=== PATIENT | male | born 1960 | race Caucasian/White ===

== ENCOUNTER 2020-12-21 20:16 | Emergency (ER) | payer OTHER ==
[~2020-12-21 20:16] MED LIST: Amiodarone 150 MG/3 ML VIAL ONE; Calcium Chloride 1 GM/10 ML Abboject SYRINGE ONE; EPINEPHrine 1 MG/10 ML Abboject SYRINGE ONE; Sodium Bicarb 50 MEQ/50 ML Abboject 8.4% SYRINGE ONE
[2020-12-21] MEDS ORDERED: Magnesium 2 GM/50 ML BAG (IN WATER) ONE (20:21)
[2020-12-22 02:44] LABS: SARS-CoV-2 NAA Rapid Test Not Detected (NotDetected)
== END 2020-12-21 20:36 | disposition expired ==
LOC: ERS 20:16 → EDBD 20:16 → ERS 20:36
DX: I46.9 Cardiac arrest, cause unspecified (principal); I49.01 Ventricular fibrillation; Z20.822 Contact with and (suspected) exposure to COVID-19
CPT/HCPCS: 0240U; 36556; 92950; 96361; 96374; 96375; J0171; J0282; J3475